=== PATIENT | female | born 1995 | race Caucasian/White ===

== ENCOUNTER 2017-07-10 09:08 | Outpatient (CLI) | payer OTHER ==
--- NOTE | 2017-07-10 19:17 | MRI Report ---
EXAM: RIGHT KNEE MRI WITHOUT CONTRAST EXAM DATE: 07/10/2017 10:21 AM. CLINICAL HISTORY: Pain in right knee. COMPARISON: None. TECHNIQUE: Multiplanar, multisequence T1-weighted and fluid-sensitive sequences of the knee without c ontrast. Other: None. FINDINGS: Bones: Surgical anchors at the medial patella. Screw fixation tunnel at the medial femoral condyle. Articular Cartilage: Unremarkable. Medial Meniscus: The medial meniscus is intact. Lateral Meniscus: The lateral meniscus is intact. Cruciate Ligaments: The anterior and posterior cruciate ligaments are intact. Collateral Ligaments: The medial collateral and lateral collateral ligamentous structures are intact. Tendons: The quadriceps, patellar, semimembranosus, and popliteus tendons are unremarkable. Musculature: No edema or fatty atrophy. Other: Small fluid collection in the lateral patellar recess. No popliteal cyst. No loose bodies. Pr obable tear and/or postsurgical changes of the distal medial patellar retinaculum with lateral patell ar subluxation. The subcutaneous tissues and fat pads are unremarkable. IMPRESSION: 1. Negative for a meniscus tear or internal derangement. 2. Surgical anchors at the medial patellar facet and lateral patellar subluxation. Indistinct distal medial patellar retinaculum consistent with postsurgical changes and/or chronic partial tear. [facility] SE[facility] Referring Provider Line: [phone] SITE ID: [id number]
== END 2017-07-10 09:09 | disposition home or self-care (01) ==
LOC: DI 09:08
PROVIDERS: ATTEND Student in an Organized Health Care Education/Training Program
DX: M25.561 Pain in right knee (principal)

== ENCOUNTER 2018-07-30 07:06 | Outpatient (CLI) | payer OTHER ==
--- NOTE | 2018-08-01 08:20 | MRI Report ---
Reason: PAIN IN LEFT KNEE Procedure Date: 07/30/2018 Accession Number: [id number] / [id number] Procedure: MRI - Knee LT W/O CPT Code: FULL RESULT: EXAM: LEFT KNEE MRI WITHOUT CONTRAST EXAM DATE: 07/30/2018 07:32 AM. CLINICAL HISTORY: Left knee pain after trampoline related injury. COMPARISON: None. TECHNIQUE: Multiplanar, multisequence T1-weighted and fluid-sensitive sequences of the knee without contrast. Other: None. FINDINGS: Bones and articular cartilage: There is marrow edema and slight cortical irregularity at the lateral aspect of the lateral femoral condyle suggestive of bone contusion and a minimally depressed impaction type fracture. There is marrow edema and an irregular, somewhat linear T1 hypointense and T2 hyperintense focus at the lateral aspect of the distal femoral metaphysis suspicious for a nondisplaced trabecular fracture and bone contusion. There is a 0.7 cm hypointense lesion at the posterior aspect of the proximal tibial metaphysis which most likely represents a bone island. Smaller bone island at the medial femoral condyle. Articular cartilage is within normal limits. The patella is subluxed slightly laterally by approximately 2.5 mm. The lateral trochlear inclination angle is approximately 7 degrees which is below normal. The trochlear groove-tibial tubercle distance is approximately 1.7 cm. Patella rosa is present. Slight lateral patellar tilt. Medial Meniscus: The medial meniscus is intact. Lateral Meniscus: The lateral meniscus is intact. Cruciate Ligaments: The anterior and posterior cruciate ligaments are intact. Collateral Ligaments: Grade 1 sprain of the superficial medial collateral ligament and the medial patellofemoral ligament. The lateral collateral ligament complex structures are intact. Tendons: The quadriceps, patellar, semimembranosus, and popliteus tendons are unremarkable. Musculature: No edema or fatty atrophy. Other: No effusion. No popliteal cyst. No loose bodies. The medial and lateral retinacula are intact. The subcutaneous tissues and fat pads are unremarkable. IMPRESSION: 1. Bone contusion and a minimally depressed impaction type fracture at the lateral aspect of the lateral femoral condyle which may be due to recent transient patellar dislocation injury. There is also bone contusion and a nondisplaced trabecular fracture at the lateral aspect of the distal femoral metaphysis. 2. Lateral subluxation of the patella by approximately 2.5 mm. Slight lateral patellar tilt. Patella rosa is also present. 3. 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 4. Grade 1 sprain of the superficial medial collateral ligament and the patellofemoral ligament. 5. No meniscal tear. [facility]
== END 2018-07-30 07:07 | disposition home or self-care (01) ==
LOC: DI 07:06
PROVIDERS: ATTEND General Practice
DX: S72.422A Displaced fracture of lateral condyle of left femur, initial encounter for closed fracture (principal); S72.492A Other fracture of lower end of left femur, initial encounter for closed fracture; S83.012A Lateral subluxation of left patella, initial encounter; S83.412A Sprain of medial collateral ligament of left knee, initial encounter